=== PATIENT | male | born 1955 | race Caucasian/White ===

== ENCOUNTER → 2018-05-21 08:09 | Outpatient (CLI) | payer BC, SELFPAY ==
--- NOTE | 2018-05-21 09:21 | DI.US.S_ITS ---
PROCEDURE: US ABDOMEN COMPLETE INDICATIONS: ABDOMINAL PAIN TECHNIQUE: Real-time scanning was performed of the abdominal and retroperitoneal organs, with image documentation. COMPARISON: None. FINDINGS: Liver: The liver is mildly enlarged measuring 17.7 cm. No focal mass. Gallbladder: The gallbladder is unremarkable. Biliary ducts: Intrahepatic bile ducts are non-dilated. Extrahepatic bile duct caliber measures 5.2 mm. Normal is 6-7 mm or less in diameter, or 10 mm or less post-cholecystectomy. Pancreas: Visualized portions of the pancreas are sonographically normal. Spleen: Spleen is normal in size and homogeneous in echotexture. Kidneys: Kidneys are normal in size and echotexture. Right kidney measures 11.4 cm long; left kidney measures 11.5 cm long. No hydronephrosis or nephrolithiasis. No solid masses. Aorta: Visualized aorta is normal in caliber at less than 3 cm. Iliacs: Proximal common iliac arteries are normal in caliber at less than 2.5 cm. IVC: Intrahepatic inferior vena cava is patent. Miscellaneous: Within the mid abdominal wall, there is a focal area of diastases within the wall musculature measuring approximately 11 mm. Bowel loop herniation is present. Reduced ability is present. IMPRESSION: 1. Mid abdominal wall reducible bowel containing hernia as above. Dictated by: Claudia Vernon M.D. on 05/21/2018 at 10:57 Approved by: Claudia Vernon M.D. on 05/21/2018 at 10:59
== END ==
PROVIDERS: Visit Provider Nurse Practitioner Family
DX: K43.9 Ventral hernia without obstruction or gangrene (principal)
CPT/HCPCS: 76700

== ENCOUNTER → 2018-06-24 06:12 | Day surgery (SDC) | payer BC, SELFPAY ==
[2018-06-16 12:14] VITALS: BMI 29.6
[2018-06-24] VITALS (10 sets, daily range): BP systolic 104–159; BP diastolic 64–91; PULSE 66–78; RESP 11–16; TEMP 35.9–36.6; O2SAT 95–98; BMI 29.6
[2018-06-24] MEDS: LACTATED RINGERS 1,000 ML 42 ML IV (08:07)
--- NOTE | 2018-06-24 08:13 | PM.ANES.PR ---
Operative Date/Time/Diagnoses Date of procedure: 06/24/18 Time of procedure: 08:13 Pre-op diagnosis: Incisional hernia Post-op diagnosis: same
[2018-06-24] MEDS: CIPROFLOXACIN 400 MG/200 ML PIGGYBACK 200 MG IV (08:28)
--- NOTE | 2018-06-24 09:08 | SUR.OPER ---
Supine on padded OR bed, head on pillow, arms secured on padded arm boards at <90 degrees abduction, legs uncrossed, safety belt at thigh, tape over blanket over lower legs.
[2018-06-24] MEDS: CEFAZOLIN 1 GM VIAL IV (09:16)
[2018-06-24] MEDS: BUPIVACAINE 0.5% (PF) VIAL 30 ML INJ (09:18)
[2018-06-24] MEDS: LIDOCAINE 1% W/EPI INJ 20 ML INJ (09:19)
--- NOTE | 2018-06-24 09:39 | PM.OP.1 ---
Operative Date/Time/Diagnoses Date of procedure: 06/24/18 Time of procedure: 09:39 Post-op diagnosis: same Procedure & Clinicians Procedure: Incisional hernia repair Same procedure as scheduled: Yes Indications: Painful enlarging incisional hernia containing loops of unobstructed small bowel Surgeon: Brittney Morgan Click Yes if Unassisted: Yes Anesthesia Type: General (Dr. Pablo calle) and Local Operative Notes Findings: Multiple fascial defects spanning a area of 8 cm x 4 cm. Small bowel in the largest and most central defect. The remaining defects contained omentum and preperitoneal fat. Closure Type: primary Implants & Drains: Woven Prolene mesh 10 x 5 cm Estimated Blood Loss (mL): 5 Procedure in detail: After obtaining informed consent, the patient is brought to the operating room and placed in the supine position on the operating table. Following successful induction of general endotracheal anesthesia, appropriate padding of all bony prominences, and placement of appropriate monitors, the abdomen is prepped and draped in the standard surgical fashion. A time-out was held per SCOAP protocol. Following infiltration with local anesthetic to create a field block, the existing midline incision was reopened. The incision was carried down through the subcutaneous tissue to identify a hernia sac immediately below this region. This hernia sac contained an unobstructed and healthy appearing loop of small bowel. Adhesiolysis was undertaken and the bowel was released and allowed to fall back into the abdominal cavity. Further exploration revealed a 2nd defect more superior and to the left lateral side from the 1st, and a 3rd defect more inferiorly in the midline. The entire left lateral abdominal wall was palpated where the patient had been having pain and there were no other defects identified. All of the defects and service of the fascia itself were carefully identified and cleared. The defects themselves were closed with interrupted 0 Prolene sutures. The surface of the fascia was then reinforced with a woven portion of Prolene mesh 10 x 5 cm in size. This was sewn to the fascia with a running Prolene suture. The wound was irrigated with warm saline solution and aspirated free of all fluid. The subcutaneous tissue was closed with a running 0 Vicryl suture and Monocryl was placed in the skin. All sponge, needle, and instrument counts were correct at the conclusion of the case. The patient tolerated procedure very well. She was allowed to awake from anesthesia without difficulty and taken to the postanesthesia care unit in good condition.
[2018-06-24] MEDS: OXYCODONE/ACETAMINOPHEN 5/325 TABLET 2 TAB PO (10:23)
[2018-06-24] MEDS: fentaNYL 100 MCG/2 ML INJ 50 MCG IV ×2 (10:38→10:43)
== END | disposition home or self-care (01) ==
PROVIDERS: PCP Nurse Practitioner Family; Visit Provider Surgery
PROC: (CPT 49560; principal; 2018-06-24 07:45)
DX: K43.2 Incisional hernia without obstruction or gangrene (principal)
CPT/HCPCS: 49560; 49568; C1781; J0690; J0744; J1100; J1885; J2704; J3010

== ENCOUNTER 2018-09-03 07:55 | Day surgery (SDC) | payer BC, SELFPAY ==
--- NOTE | 2018-09-03 | PATH_ITS ---
[facility] Accession Number: [id number] . 01 Material submitted: . PART A: POLYP AT 60 PART B: POLYP AT 70 . 02 Diagnosis: A. Polyp at 60 cm, Biopsy: Hyperplastic polyp. . B. Polyp at 70 cm, Biopsy: Sessile serrated polyp. MRV/09/07/2018 . 02 Electronically signed: . Leila Metzger MD, Pathologist NPI- [id number] . 01 Gross description: . Received two formalin-filled containers both labeled with the patient's name. . A. In a container labeled polyp at 60 are two 0.3 to 0.4 cm portions of tissue. Entirely submitted in cassette A. B. In a container labeled polyp at 70 cm are four 0.2 to 0.4 cm portions of tissue. Entirely submitted in cassette B. [place] [id number] /[facility] . 02 Pathologist provided ICD-10: K63.5 . 02 CPT . 587787, 031646 Performed at: 01 [facility] [address] [id number] MD Errol Zamudio MD Phone: [phone] Performed at: 02 [facility] [address] [place], [place] [id number] MD Colton Munguia MD Phone: [phone]
[2018-09-03 08:27] VITALS: BP 153/98; PULSE 72; RESP 16; TEMP 36.2; O2SAT 93; BMI 28.1
[2018-09-03] MEDS: SODIUM CHLORIDE 0.9% 1,000 ML 200 ML IV (08:36)
--- NOTE | 2018-09-03 10:38 | PM.HP.1 ---
History of Present Illness Date Patient Seen: 09/03/18 Time Patient Seen: 10:38 Chief complaint: colonoscopy [id number] Narrative: Very pleasant gentleman well known to me from prior visits. He has a personal history of multiple colon polyps including 1 that required resection and multiple others that required removal and short-term follow-up. He has not had a colonoscopy in 5 years. He presents today to complete that procedure Patient History Medical History Amputation finger (Acute) HTN (hypertension) (Acute) Surgical History Hx of colectomy (Acute) Family & Social History Family History: Reviewed 09/03/18 by Brittney Morgan MD Social History: household members spouse Meds Home Medications Medication Instructions Recorded Confirmed Type famotidine [Pepcid] 20 mg PO QDAY #0 05/11/17 09/03/18 History losartan-hydrochlorothiazide 1 tab PO DAILY 06/23/18 09/03/18 History Allergies Allergy/AdvReac Type Severity Reaction Status Date / Time erythromycin base Allergy Unknown DRY HEAVES Unverified 09/03/18 08:36 [ERYTHROMYCIN BASE] Penicillins [PENICILLINS] Allergy Unknown HIVES Unverified 09/03/18 08:36 Review of Systems Review of Systems All systems reviewed & are unremarkable except as noted in HPI and below Exam Vital Signs (past 8 hours): - 09/03/18 08:27 Temperature 97.2 F L Pulse Rate 72 Respiratory Rate 16 Blood Pressure 153/98 H Pulse Oximetry 93 Oxygen Delivery Method Room Air Narrative Exam Narrative: Beatrice 62-year-old gentleman in no distress HEENT: Normocephalic and atraumatic, pupils equal round reactive to light accommodation with anicteric sclera Lungs: Clear bilaterally Heart: Regular rate and rhythm Abdomen: Soft, nontender, active bowel sounds. Well-healed midline incision. No hernias appreciated currently. No tenderness. Extremities: Warm well perfused Assessment & Plan Plan: Assessment/Plan Narrative: Very pleasant gentleman presents today for a surveillance colonoscopy for history of multiple colon polyps. We discussed the risks and benefits of the procedure the patient expressed a desire to completed today.
[2018-09-03] MEDS: MIDAZOLAM 5 MG/5 ML VIAL IV (10:48)
[2018-09-03] MEDS: fentaNYL 250 MCG/5 ML INJ IV (10:49)
[2018-09-03 11:00] VITALS: BP 105/72; PULSE 70; RESP 16; TEMP 36.9; O2SAT 97
--- NOTE | 2018-09-03 11:02 | PM.OP.1 ---
Operative Date/Time/Diagnoses Date of procedure: 09/03/18 Time of procedure: 11:02 Pre-op diagnosis: Personal history of colon polyps Post-op diagnosis: same Procedure & Clinicians Procedure: Colonoscopy to the cecum Same procedure as scheduled: Yes Indications: Prior history of multiple large unresectable colon polyps requiring colectomy. Last colonoscopy was 5 years ago Surgeon: Brittney Morgan Anesthesia Type: Sedation (Versed 5 mg; fentanyl 150 mcg) Operative Notes Findings: 1. Excellent prep 2. Mild diverticulosis in the sigmoid colon. No evidence of recent bleeding or inflammation 3. Tattoo identified in the right colon with no evidence of any polyp regrowth or lesion 4. Anastomosis identified in the sigmoid region with no evidence of regrowth of polyps 5. A single 3 mm sessile polyp at 70 cm from the anal verge. The polyp was removed with cold forceps and retained for pathology. 6. A single 5 mm polyp at 60 cm from the anal verge. Removed with cold forceps and retained for pathology 7. Grade 1 internal hemorrhoids Closure Type: not applicable Estimated Blood Loss (mL): 1 Procedure in detail: After obtaining informed consent, the patient was brought to the GI suite and placed in the left lateral decubitus position on the examination table. After placement of appropriate monitors, the patient was given incremental doses of Versed and Fentanyl until an appropriate level of sedation was achieved. A time out was held per SCOAP protocol. A digital rectal examination was performed and did not reveal any masses or obstructing lesions. The colonoscope was gently passed into the patient's anus and the entire colon navigated to the level of the cecum with minimal difficulty. Once in the cecum, the scope was withdrawn being sure to go before and beyond all mucosal folds and prominences and get an excellent examination. A tattoo was identified in the right colon but there was no evidence of polyp or associated lesion. We continued our examination distally. We did identify 2 small sessile polyps. One at 70 cm and 1 at 60 cm. They were both removed with cold forceps and retained for pathology. An anastomosis was identified in the distal sigmoid region. There was no evidence of lesion at the anastomotic site. Other findings are noted above. At the level of the rectal vault, the scope was retroflexed and the internal anal canal was examined. The scope was straightened and air aspirated from the colon. The instrument was removed from the patient's body and the procedure was concluded. The patient was allowed to awaken from sedation without difficulty and taken to the post-anesthesia care unit in good condition. Complications: none Condition: stable Disposition: PACU Plan for aftercare: 1. Discharged to home 2. Plan for next colonoscopy in 5 years or as clinically indicated 3. We will contact you with pathology results and any further recommendations
[2018-09-03 11:05] VITALS: BP 105/67; PULSE 68; RESP 12; TEMP 36.9; O2SAT 96
[2018-09-03 11:10] VITALS: BP 103/70; PULSE 69; RESP 14; TEMP 37.1; O2SAT 96
[2018-09-03 11:23] VITALS: BP 113/70; PULSE 65; RESP 16; TEMP 37.2; O2SAT 95
== END 2018-09-03 11:29 | disposition home or self-care (01) ==
PROVIDERS: PCP Nurse Practitioner Family; Visit Provider Surgery
PROC: 0DJD8ZZ Inspection of Lower Intestinal Tract, Via Natural or Artificial Opening Endoscopic (ICD-10-PCS; CPT 45378; principal; 2018-09-03 09:45)
DX: Z86.010 Personal history of colon polyps (principal); K57.30 Diverticulosis of large intestine without perforation or abscess without bleeding; K64.0 First degree hemorrhoids; K63.5 Polyp of colon
CPT/HCPCS: 45380; J2250; J3010

== ENCOUNTER → 2023-10-06 12:22 | Outpatient (CLI) | payer BC, SELFPAY ==
--- NOTE | 2023-10-06 12:45 | DI.MRI.S_ITS ---
PROCEDURE: MR SHOULDER RT WO CON INDICATIONS: Unspecified rotator cuff tear or rupture of right TECHNIQUE: Noncontrast oblique coronal T2 fast spin echo with fat saturation, oblique sagittal T1 spin echo and T2 fast spin echo with fat saturation, axial T1 spin echo and T2 fast spin echo with fat saturation through the shoulder. COMPARISON: [facility] [place], CR, XR SHOULDER 2+ VIEWS RIGHT, 09/29/2023, 14:55. FINDINGS: Image quality: Excellent. Rotator cuff: Low-grade partial intrasubstance tearing is seen at the distal supraspinatus tendon insertion superimposed on mild supraspinatus and infraspinatus tendinosis. Teres minor tendon is intact. There is mild subscapularis tendinosis. No significant rotator cuff muscle atrophy is seen. Bones and bursae: No acute trabecular bone injury or fracture. Chronic traction cystic changes are seen at the posterosuperior humeral head and greater tuberosity near the rotator cuff tendon insertions. Mild partial-thickness cartilage irregularity in the glenohumeral joint. Small marginal osteophytes. Moderate to severe degenerative changes are seen at the acromioclavicular joint with subchondral edema and marginal osteophyte formation. There is trace subacromial/subdeltoid bursal fluid. No significant glenohumeral joint effusion. Capsule and soft tissues: Nondisplaced tearing of the superior labrum extending into the posterosuperior labrum. The proximal biceps long head tendon demonstrates mild tendinosis. There is mild partial effacement of the fat in the rotator interval. There is borderline thickening of the anterior band of the inferior glenohumeral ligament. IMPRESSION: 1. Low-grade partial intrasubstance tearing of the supraspinatus tendon at the distal insertion superimposed on mild tendinosis. Mild infraspinatus and subscapularis tendinosis is also noted. No full-thickness rotator cuff tendon tear is seen. 2. Mild proximal biceps long head tendinosis. 3. Nondisplaced tearing of the superior to posterosuperior labrum. 4. Moderate to severe acromioclavicular joint osteoarthrosis. 5. Partial effacement of the rotator interval fat and mild thickening of the inferior glenohumeral ligament are nonspecific, but can be seen in the setting of the clinical syndrome of adhesive capsulitis. Approved by: Mauro Orozco M.D. on 10/06/2023 at 15:23
== END ==
PROVIDERS: Referring Provider Orthopaedic Surgery; Visit Provider Orthopaedic Surgery
DX: M75.111 Incomplete rotator cuff tear or rupture of right shoulder, not specified as traumatic (principal); M19.011 Primary osteoarthritis, right shoulder; S43.491A Other sprain of right shoulder joint, initial encounter
CPT/HCPCS: 73221

== ENCOUNTER 2023-12-04 07:29 | Day surgery (SDC) | payer BC, SELFPAY ==
--- NOTE | 2023-12-04 | PATH_ITS ---
[facility] Accession Number: [id number] No. of containers..01 Tissue . 01 Material submitted: . cecum - CECAL POLYP . 01 Diagnosis: Colon, cecal polyp, biopsy: - Tubular adenoma. TXN 12/08/2023 1640 Local . 01 Electronically signed: . Yair Blanco MD, Pathologist NPI- [id number] . 01 Gross description: . CECAL POLYP: Received in formalin is 1 fragment(s) of maciel, soft tissue measuring 0.5 x 0.5 x 0.1 cm submitted entirely in 1 cassette(s) /AAY 12/06/2023 0631 Local . 01 Pathologist provided ICD-10: Z12.11 . 01 CPT . 898919 Specimen Comment: A courtesy copy of this report has been sent to [phone] Performed at: 01 [facility] [address] [place] [address], [place], [place] [id number] MD Errol Zamudio MD Phone: [phone]
--- NOTE | 2023-12-04 08:30 | P.HP_ITS ---
History of Present Illness History of Present Illness Date Patient Seen: 12/04/23 Time Patient Seen: 08:30 Chief complaint: SDC Narrative: Dimitry is a 68-year-old man who presents for colonoscopy. He had colon cancer many years ago and had a left colectomy or a sigmoidectomy in [place]. His last colonoscopy was by Dr. Morgan in 2018 and sessile serrated adenoma was resected. [facility] Medical History (Updated 12/04/23 @ 09:05 by Elvis Kaur MD) Amputation finger HTN (hypertension) Surgical History Hx of colectomy Social History household members: spouse Smoking Status: Never smoker alcohol intake: current Meds Home Medications and Allergies Home Medications Medication Instructions Recorded Confirmed Type famotidine 20 mg tablet (Pepcid) 20 mg PO PRN PRN gerd ##0 05/11/17 12/03/23 History atorvastatin 20 mg tablet 20 mg PO DAILY 12/03/23 12/04/23 History lisinopril 40 mg tablet 40 mg PO DAILY 12/03/23 12/04/23 History allopurinol 100 mg tablet 100 mg PO DAILY 12/04/23 12/04/23 History Allergies Allergy/AdvReac Type Severity Reaction Status Date / Time erythromycin base Allergy Unknown DRY HEAVES Verified 12/04/23 07:53 [ERYTHROMYCIN BASE] Penicillins [PENICILLINS] Allergy Unknown HIVES Verified 12/04/23 07:53 Exam Const General: healthy appearing and No acute distress Resp Effort & Inspection: normal respiratory effort Assessment & Plan Assessment and plan (1) History of colon cancer: Status: Acute Plan We reviewed the risks and benefits of colonoscopy for colon cancer screening and he would like to proceed
[2023-12-04 08:34] VITALS: BP 142/82; PULSE 74; RESP 16; TEMP 36.3; O2SAT 99
[2023-12-04 08:38] VITALS: BMI 28.1
--- NOTE | 2023-12-04 09:26 | PM.OP.COLON ---
Operative Date/Time/Diagnoses Date of procedure: 12/04/23 Time of procedure: 09:26 Pre-op diagnosis: Personal history of colon cancer Post-op diagnosis: same Procedure & Clinicians Study performed: Colonoscopy Same procedure as scheduled: Yes Surgeon: Elvis Kaur Procedure Notes Procedure in detail: Surgeon: Elvis Kaur MD Anesthesia: Hamida Glynn CRNA Procedure: The patient was brought to the endoscopy suite, placed in left lateral decubitus position. The patient was connected to monitoring devices. A time-out was performed. Sedation was administered. Once the patient was adequately sedated, a digital rectal exam was performed and was normal. The scope was then inserted and advanced to the cecum where the appendiceal orifice was identified and photographed. The scope was then slowly withdrawn over greater than 6 minutes. The mucosa was thoroughly inspected. The prep was inadequate to clear the proximal colon as there was solid debris in the lumen. There was 1 small polyp removed with a cold snare from the cecum on the ileocecal valve. No other abnormalities were seen. The scope was retroflexed in the rectum. No other abnormalities were seen in the rectum. The scope was straightened and removed. The patient was awakened and brought to recovery. Scope withdrawal time: 6 minutes Sedation time: 9 minutes EBL: 2 mL Findings: Inadequate prep, cecal polyp Post-procedure Disposition: PACU
[2023-12-04 09:28] VITALS: BP 89/60; PULSE 64; RESP 16; TEMP 36.9; O2SAT 95
[2023-12-04 09:35] VITALS: BP 90/58; PULSE 63; RESP 16; O2SAT 95
[2023-12-04 09:39] VITALS: BP 96/62; PULSE 63; RESP 16; TEMP 36.7; O2SAT 98
[2023-12-04 09:53] VITALS: BP 127/78; PULSE 68; RESP 16; TEMP 36.7; O2SAT 99
== END 2023-12-04 09:56 | disposition home or self-care (01) ==
PROVIDERS: Referring Provider Surgery; Visit Provider Surgery
PROC: 0DJD8ZZ Inspection of Lower Intestinal Tract, Via Natural or Artificial Opening Endoscopic (ICD-10-PCS; CPT 45378; principal; 2023-12-04 08:45)
DX: Z12.11 Encounter for screening for malignant neoplasm of colon (principal); Z85.038 Personal history of other malignant neoplasm of large intestine; D12.0 Benign neoplasm of cecum
CPT/HCPCS: 45385; J2704

== ENCOUNTER 2024-07-15 07:03 | Day surgery (SDC) | payer BC, SELFPAY ==
--- NOTE | 2024-07-15 | PATH_ITS ---
[facility] Accession Number: [id number] No. of containers..02 Tissue . 01 Material submitted: . PART A: colon - ASCENDING COLON POLYP PART B: colon - TRANSVERSE POLYP . 01 Diagnosis: Part A: ASCENDING COLON POLYP: Polypoid colonic mucosa with no neoplasm identified. . Specimen Comments: Additional step sections were examined. . Part B: TRANSVERSE POLYP: Tubular adenoma. STO 07/22/2024 1223 Local . 01 Electronically signed: . Errol Zamudio MD, Pathologist NPI- [id number] . 01 Gross description: . Part A: ASCENDING COLON POLYP: Received in formalin is 1 fragment(s) of maciel, soft tissue measuring 0.5 x 0.5 x 0.2 cm submitted entirely in 1 cassette(s) . Part B: TRANSVERSE POLYP: Received in formalin is 1 fragment(s) of maciel, soft tissue measuring 0.3 x 0.1 x 0.1 cm submitted entirely in 1 cassette(s) /RUBIN 07/22/2024 1222 Local . 01 Pathologist provided ICD-10: D12.3, K63.5 . 01 CPT . 641201, 557641 Specimen Comment: A courtesy copy of this report has been sent to [phone] Performed at: 01 [facility] [address], [place], [place] [id number] MD Errol Zamudio MD Phone: [phone]
[2024-07-15 07:33] VITALS: BP 139/81; PULSE 67; RESP 16; TEMP 36.5; O2SAT 97
[2024-07-15] MEDS: LACTATED RINGERS 1,000 ML 42 ML IV (07:40)
--- NOTE | 2024-07-15 08:02 | P.HP_ITS ---
History of Present Illness History of Present Illness Date Patient Seen: 07/15/24 Time Patient Seen: 08:02 Chief complaint: SDC Narrative: Dimitry is a 68-year-old man who is here for colonoscopy. He had an attempted colonoscopy in November of this year and a small polyp was removed from the cecum but his prep was inadequate to clear the rest of the colon. The cecal polyp came back as a tubular adenoma. He has a remote history of colon cancer and had a sigmoid colon resection many years ago in [place]. [facility] Medical History (Updated 12/04/23 @ 09:05 by Elvis Kaur MD) Amputation finger HTN (hypertension) Surgical History Hx of colectomy Social History household members: spouse Smoking Status: Current every day smoker alcohol intake: current Meds Home Medications and Allergies Home Medications Medication Instructions Recorded Confirmed Type famotidine 20 mg tablet (Pepcid) 20 mg PO PRN PRN gerd ##0 05/11/17 07/15/24 History atorvastatin 20 mg tablet 20 mg PO DAILY 12/03/23 07/15/24 History lisinopril 40 mg tablet 40 mg PO DAILY 12/03/23 07/15/24 History allopurinol 100 mg tablet 100 mg PO DAILY 12/04/23 07/15/24 History sodium,potassium,mag sulfates 17.5 See Rx Instructions PO .COMPLEX 03/22/24 07/15/24 Rx gram-3.13 gram-1.6 gram oral soln #354 mL (Suprep Bowel Prep Kit) Allergies Allergy/AdvReac Type Severity Reaction Status Date / Time erythromycin base Allergy Unknown DRY HEAVES Verified 07/15/24 07:31 [ERYTHROMYCIN BASE] Penicillins [PENICILLINS] Allergy Unknown HIVES Verified 07/15/24 07:31 Exam Vital Signs (past 8 hours): - 07/15/24 07:33 Temperature 97.7 F Pulse Rate 67 Respiratory Rate 16 Blood Pressure 139/81 Pulse Oximetry 97 Oxygen Delivery Method Room Air Oxygen Delivery Method Room Air Const General: No acute distress Resp Effort & Inspection: normal respiratory effort Assessment & Plan Assessment and plan (1) History of colon cancer: Status: Acute (2) History of colon polyps: Status: Chronic Plan We reviewed the risks and benefits of colonoscopy and he would like to proceed. Time-Based Coding :: [TOTAL MINUTES] spent with patient and on the chart (including review of chart, obtaining history, exam, reviewing outside data, placing orders, documenting exam and treatment plan, and counseling patient) on [DATE].
--- NOTE | 2024-07-15 08:34 | PM.OP.COLON ---
Operative Date/Time/Diagnoses Date of procedure: 07/15/24 Time of procedure: 08:35 Pre-op diagnosis: History of colon cancer Post-op diagnosis: same Procedure & Clinicians Study performed: Colonoscopy Same procedure as scheduled: Yes Surgeon: Elvis Kaur Procedure Notes Procedure in detail: Surgeon: Elvis Kaur MD Anesthesia: Colleen Mccabe CRNA Procedure: The patient was brought to the endoscopy suite, placed in left lateral decubitus position. The patient was connected to monitoring devices. A time-out was performed. Sedation was administered. Once the patient was adequately sedated, a digital rectal exam was performed and was normal. The scope was then inserted and advanced to the cecum where the appendiceal orifice was identified and photographed. The scope was then slowly withdrawn over greater than 6 minutes. The mucosa was thoroughly inspected. There was a 4 mm polyp in the ascending colon removed with a cold snare. There were 2 areas of tattoo ink in the right colon with no evidence of recurrent neoplasia. There was a 4 mm polyp in the transverse colon removed with a cold snare. The scope was retroflexed in the rectum. No other abnormalities were found. The scope was straightened and removed. The patient was awakened and brought to recovery. Scope withdrawal time: 10 minutes Sedation time: 14 minutes EBL: 2 mL Findings: 4 mm polyp in the ascending colon and 4 mm polyp in the transverse colon Post-procedure Disposition: PACU
[2024-07-15 08:35] VITALS: BP 104/57; PULSE 64; RESP 15; TEMP 36.4; O2SAT 97
[2024-07-15 08:40] VITALS: BP 110/71; PULSE 66; RESP 13; O2SAT 98
[2024-07-15 08:45] VITALS: BP 130/78; PULSE 65; RESP 12; O2SAT 98
[2024-07-15 08:50] VITALS: BP 130/69; PULSE 67; RESP 17; TEMP 36.4; O2SAT 100
== END 2024-07-15 08:59 | disposition home or self-care (01) ==
PROVIDERS: Referring Provider Surgery; Visit Provider Surgery
PROC: 0DJD8ZZ Inspection of Lower Intestinal Tract, Via Natural or Artificial Opening Endoscopic (ICD-10-PCS; CPT 45378; principal; 2024-07-15 08:15)
DX: Z12.11 Encounter for screening for malignant neoplasm of colon (principal); Z86.010 Personal history of colon polyps; Z85.038 Personal history of other malignant neoplasm of large intestine; D12.3 Benign neoplasm of transverse colon; K63.5 Polyp of colon
CPT/HCPCS: 45385; J2704